=== PATIENT | male | born 2000 ===

== ENCOUNTER 2025-04-12 08:00 | Emergency (ER) | payer SELFPAY ==
[2025-04-12 08:07] VITALS: BP 130/88
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
== END 2025-04-12 13:16 | disposition home or self-care (01) ==
LOC: EMR 08:00
PROVIDERS: EMERGENCY PHYSICIAN Emergency Medicine
DX: F41.9 Anxiety disorder, unspecified (principal); F31.9 Bipolar disorder, unspecified; F43.10 Post-traumatic stress disorder, unspecified; L05.91 Pilonidal cyst without abscess; F17.200 Nicotine dependence, unspecified, uncomplicated; Z59.02 Unsheltered homelessness
CPT/HCPCS: 99282